=== PATIENT | female | born 1960 | race Caucasian/White ===

== ENCOUNTER → 2016-10-30 | Outpatient (CLI) | payer OTHER ==
--- NOTE | 2016-10-30 17:17 | BD ---
EXAMINATION TYPE: MG DEXA axial skeleton. DATE OF EXAM: 10/30/2016 11:52 AM COMPARISON: NONE CLINICAL HISTORY: 56-year-old female postmenopausal screening Height: 5 FT 8 IN Weight: 182 FRAX RISK QUESTIONS: Alcohol (3 or more units per day): NO Family History (Parent hip fracture): NO Glucocorticoids (More than 3mos): NO (Ex: prednisone, prednisolone, methylprednisolone, dexamethasone, and hydrocortisone). History of Fracture in Adulthood: NO Secondary Osteoporosis: 1. Type 1 Diabetes: NO 2. Hyperthyroidism: NO 3. Menopause before 45: YES 4. Malnutrition: NO 5. Chronic liver disease: NO Rheumatoid Arthritis: NO Current Tobacco Use: NO RISK FACTORS HISTORY OF: Family History of Osteoporosis: YES Active: NO Postmenopausal woman: AGE 43 MEDICATIONS: Additional Medications: ASPIRIN Additional History: HISTORY OF STROKE EXAM MEASUREMENTS: Bone mineral densitometry was performed using the [employer] System. Bone mineral density as measured about the Lumbar spine is: ----- L1-L4(G/cm2): 1.172 T Score Values are as follows: ----- L2: -0.3 ----- L3: -0.1 ----- L4: 0.1 ----- L1-L4: -0.1 Bone mineral density has: Decreased -4.5 % since study of: 2010 Bone mineral density about the R hip (g/cm2): 0.845 Bone mineral density about the L hip (g/cm2): 0.968 T Score values are as follows: -----R Neck: -1.4 -----L Neck: -0.5 -----R Total: -1.8 -----L Total: -1.2 Bone mineral density has: Decreased -9.0% since study of: 2010 IMPRESSION: Osteopenia as indicated by T score values in both hips. There is slightly increased risk of fracture and the patient may be considered for treatment. Re-Screen 2-5 years. NOTE: T-SCORE=SD OF THE YOUNG ADULT MEAN.
--- NOTE | 2016-10-31 14:26 | MM ---
Reason for exam: screening (asymptomatic). Last mammogram was performed 2 years and 1 month ago. History: Patient is postmenopausal. Family history of breast cancer in cousin at age 53. Cancelled Left US Needle Biopsy of the left breast, September 13, 2005. Took hormonal contraceptives for 8 years beginning at age 15. Physical Findings: A clinical breast exam by your physician is recommended on an annual basis and results should be correlated with mammographic findings. MG 3D Screening Mammo W/Cad Bilateral CC and MLO view(s) were taken. Prior study comparison: October 11, 2014, bilateral MG screening mammo w CAD. December 10, 2010, bilateral digital screening mammo w/CAD. There are scattered fibroglandular densities. No significant changes when compared with prior studies. ASSESSMENT: Negative, BI-RAD 1 RECOMMENDATION: Routine screening mammogram of both breasts in 1 year.
== END | disposition home or self-care (01) ==
LOC: RADMAMWWP 11:21
PROVIDERS: ATTEND Family Medicine
DX: Z12.31 Encounter for screening mammogram for malignant neoplasm of breast (principal); M85.851 Other specified disorders of bone density and structure, right thigh; M85.852 Other specified disorders of bone density and structure, left thigh; Z78.0 Asymptomatic menopausal state
CPT/HCPCS: 77080; 77063; G0202

== ENCOUNTER → 2016-11-27 | Outpatient (CLI) | payer OTHER ==
--- NOTE | 2016-11-27 14:50 | CTL ---
EXAMINATION TYPE: CT Low Dose Lung DATE OF EXAM ORDERED: 11/27/2016 HISTORY: . Lung cancer screening CT DLP: 81.[address] CTDI: 2.4 mGy Automated exposure control for dose reduction was used. SCREENING VISIT: Initial COMPARISON: None TECHNIQUE: Low dose computed tomography scan was performed through the chest at 1 mm thick sections a nd reconstructed images in the coronal plane at [address] DIAGNOSTIC QUALITY: Satisfactory FINDINGS: LUNG NODULES: None. LUNGS: COPD: Severity: Mild. Bronchial thickening is present suggestive for mild chronic bronchitis. Fibrosis: Severity: None Lymph nodes: No enlarged lymph nodes Other findings: None RIGHT PLEURAL SPACE: Effusion: None Calcification: None Thickening: None Pneumothorax: None LEFT PLEURAL SPACE: Effusion: None Calcification: None Thickening: None Pneumothorax: None HEART: Heart Size: Normal Coronary calcification: None Pericardial effusion: None OTHER FINDINGS: Upper abdomen: Unremarkable Bony thorax: Normal Supraclavicular region: Normal Other: The ascending thoracic aorta at the level the main pulmonary artery is 3.6 cm. The main pulmon jacobo artery the bifurcation is 2.6 cm IMPRESSION: Mild chronic bronchitis may be present. FOLLOW UP CT CHEST RECOMMENDATION: Screening per protocol CT LUNG RAD: Lung-Rad 1 Negative
== END | disposition home or self-care (01) ==
LOC: RADCTMAIN 14:15
PROVIDERS: ATTEND Family Medicine
DX: Z12.2 Encounter for screening for malignant neoplasm of respiratory organs (principal); J42 Unspecified chronic bronchitis; Z87.891 Personal history of nicotine dependence

== ENCOUNTER 2018-08-10 09:19 | Day surgery (SDC) | payer BC, OTHER ==
[2018-08-06 14:27] VITALS: BMI 27.3
[~2018-08-10 09:19] MED LIST: LIDOCAINE 1% 20 ML VIAL (10MG/ML) FOR IV START INTRADERMA PRN
[2018-08-10 09:45] VITALS: RESP 16; TEMP 97.9
[2018-08-10] MEDS: LACTATED RINGERS 1,000 ML IV SCH ×2 (09:51→10:08)
[2018-08-10] MEDS ORDERED: PROPOFOL 10 MG/ML 20 ML VIAL IV ONE (10:13)
--- NOTE | 2018-08-10 10:41 | P.PCN ---
Date of Procedure: 08/10/18 Procedure(s) Performed: Procedure: Total colonoscopy. Preoperative diagnosis: Screening for neoplasia, patient has family history of colon cancer and history of polyps. Postoperative diagnosis: Mild sigmoid diverticulosis with no evidence of acute diverticulitis, strictures, polyps or cancer. Preparation: HalfLytely prep. Sedation: Was provided by anesthesia. Brief clinical history: The patient is a 57-year-old female who is scheduled for this evaluation for screening for neoplasia age being her risk factor in addition to family history of colon cancer in her father and personal history of polyps. This would be her fourth evaluation. Her last exam was in 2013. The patient has no abdominal complaints, bleeding or anemia. She had an appendectomy 2 or 3 years ago and, apparently, she was told that she had a spot on the ileocecal valve area shown on CT. She is concerned, because her father had his cancer in that area. Procedure: With the patient on her left lateral decubitus position and after informed consent and adequate sedation, the perianal area was inspected and it did not show any fissures or fistulas. There were no masses felt on digital rectal examination. The Olympus CFH 190L video colonoscope was then inserted in the rectum in the usual fashion and advanced to the cecum. I intubated the ileocecal valve and examined the terminal ileum. Terminal ileum and colon appeared healthy with no edema, erythema, friability, ulceration, exudation or spontaneous bleeding. No polyps or tumors were seen. There was occasional diverticular orifices seen in the distal sigmoid but I saw no evidence of acute diverticulitis or strictures. I retroflexed the endoscope in the rectum before the endoscope was withdrawn. The patient tolerated the procedure well. Plan: The patient was reassured. Discussed dietary measures. She will follow- up with you as planned and I recommended repeat exam in 5 years.
[2018-08-10 10:54] VITALS: BP 100/67; PULSE 61
== END 2018-08-10 11:24 | disposition home or self-care (01) ==
LOC: ORWHC2ENDO 09:19
DX: Z12.11 Encounter for screening for malignant neoplasm of colon (principal); K57.30 Diverticulosis of large intestine without perforation or abscess without bleeding; I69.951 Hemiplegia and hemiparesis following unspecified cerebrovascular disease affecting right dominant side; E78.5 Hyperlipidemia, unspecified; D68.2 Hereditary deficiency of other clotting factors; Z86.010 Personal history of colon polyps; Z87.891 Personal history of nicotine dependence; Z80.0 Family history of malignant neoplasm of digestive organs; Z79.82 Long term (current) use of aspirin
CPT/HCPCS: J2704; G0105

== ENCOUNTER → 2018-11-02 | Outpatient (CLI) | payer BC ==
--- NOTE | 2018-11-02 13:14 | BD ---
EXAMINATION TYPE: Axial Bone Density DATE OF EXAM: 11/02/2018 COMPARISON: 10.30.2016 CLINICAL HISTORY: 58 YR OLD FEMALE.....ICD-10 CODE: Z78.0 POST MENOPAUSAL Height: 67.4 Weight: 177 FRAX RISK QUESTIONS: Secondary Osteoporosis: YES 3. Menopause before 45: YES, AT 43 YRS OLD Current Tobacco Use: QUIT ABOUT 10 YRS AGO RISK FACTORS HISTORY OF: Family History of Osteoporosis: YES, MOTHER...NO FX OF HIP Postmenopausal woman: YES HYST AT AGE 43 YRS Take estrogen and/or progesterone medications: ONLY BCPs IN PAST FOR ABOUT 8 YRS MEDICATIONS: Additional Medications: ASPIRIN 25 MG DAILY Additional History: NOTHING TO NOTE HERE EXAM MEASUREMENTS: Bone mineral densitometry was performed using the [employer] System. Bone mineral density as measured about the Lumbar spine is: ----- L1-L4(G/cm2): 1.168 T Score Values are as follows: ----- L1: -0.1 ----- L2: -0.5 ----- L3: -0.1 ----- L4: 0.1 ----- L1-L4: -0.1 Bone mineral density has: Decreased -0.7% since study of: 10.30.2016 Bone mineral density about the R hip (g/cm2): 0.778 Bone mineral density about the L hip (g/cm2): 0.854 T Score values are as follows: -----R Neck: -1.4 -----L Neck: -0.5 -----R Total: -1.8 -----L Total: -1.2 Bone mineral density has: Decreased -0.6% since study of: 10.30.2016 FRAX%s: THERE IS A 7.4% CHANCE FOR A MAJOR OSTEOPOROTIC FX AND A 0.5% FOR HIP.....PROBABILITY OF F X IN 10 YRS TIME IMPRESSION: Osteopenia bilateral hips. NOTE: T-SCORE=SD OF THE YOUNG ADULT MEAN.
--- NOTE | 2018-11-03 13:25 | MM ---
Reason for exam: screening (asymptomatic). Last mammogram was performed 2 years ago. History: Patient is postmenopausal. Family history of breast cancer in cousin at age 53. Cancelled Left US Needle Biopsy of the left breast, September 13, 2005. Took hormonal contraceptives for 8 years beginning at age 15. Physical Findings: A clinical breast exam by your physician is recommended on an annual basis and results should be correlated with mammographic findings. MG 3D Screening Mammo W/Cad Bilateral CC and MLO view(s) were taken. Prior study comparison: October 30, 2016, bilateral MG 3d screening mammo w/cad. October 11, 2014, bilateral MG screening mammo w CAD. There is chronic nodularity bilaterally. No significant changes when compared with prior studies. ASSESSMENT: Benign, BI-RAD 2 RECOMMENDATION: Routine screening mammogram of both breasts in 1 year.
== END | disposition home or self-care (01) ==
LOC: RADMAMWWP 08:42
PROVIDERS: ATTEND Family Medicine
DX: Z12.31 Encounter for screening mammogram for malignant neoplasm of breast (principal); M85.851 Other specified disorders of bone density and structure, right thigh; M85.852 Other specified disorders of bone density and structure, left thigh; Z78.0 Asymptomatic menopausal state
CPT/HCPCS: 77063; 77067; 77080

== ENCOUNTER 2018-11-26 10:25 | Day surgery (SDC) | payer BC ==
[2018-11-20 11:44] VITALS: BMI 27.3
[~2018-11-26 10:25] MED LIST changes: -LIDOCAINE 1% 20 ML VIAL (10MG/ML) FOR IV START INTRADERMA PRN; +SODIUM CHLORIDE 0.9% 1,000 ML IV SCH
[2018-11-26 10:56] VITALS: TEMP 97.5
[2018-11-26 13:59] VITALS: BP 117/70; PULSE 57; RESP 18
--- NOTE | 2018-11-26 15:47 | P.PCN ---
Preoperative Diagnosis: Diagnosis Recurrent dizzy spells/presyncope Twelve-lead ECG Sinus rhythm normal MA narrow QRS normal QT interval no epsilon waves no delta waves and normal ST segments Tilt table test per protocol Baseline blood pressure 106/59 mmHg Baseline heart rate 53 beats a minute patient was tilted upright at an angle of 70 per protocol Normal heart rate and blood pressure response to upright tilting No symptoms noted Impression normal twelve-lead ECG Normal heart rate and blood pressure response to upright tilting No evidence for neurocardiogenic syncope
== END 2018-11-26 13:35 | disposition home or self-care (01) ==
LOC: CATHEP 10:25
PROVIDERS: ATTEND Internal Medicine Clinical Cardiac Electrophysiology
DX: R55 Syncope and collapse (principal); R42 Dizziness and giddiness
CPT/HCPCS: 93005; 93660

== ENCOUNTER → 2021-01-04 | Outpatient (CLI) | payer BC ==
--- NOTE | 2021-01-04 12:40 | CT ---
EXAMINATION TYPE: CT angio head DATE OF EXAM: 01/04/2021 COMPARISON: CT without contrast 04/27/2020 HISTORY: 60-year-old female R4 2, Z8 6.73, Dizziness and Giddiness, personal history of TIA TECHNIQUE: Contiguous axial scanning of the head performed without and with IV Contrast, patient inje cted with 100 ml mL of Isovue 370. Coronal and sagittal reconstructions performed. 3-D reconstruction s generated on a dedicated workstation. CT DLP: 2477 mGycm Automated exposure control for dose reduction was used. FINDINGS: Brain: Large area of encephalomalacia left yu radiata left basal ganglia. Asymmetric volume loss with sl ight enlargement of the body of the left lateral ventricle. Associated hypodensity extending into the left centrum semiovale may be slightly increased. No evidence for acute intracranial hemorrhage, acute ischemic change, mass, mass effect, midline shif t, or extra-axial fluid collection. No hydrocephalus. No effacement of cerebral sulci or basal symmet annette distance. Freitas-white matter differentiation is maintained. Paranasal sinuses and mastoid air cells well pneumatized. Orbits and globes are intact. CTA: The V4 segment left vertebral artery after the PICA takeoff becomes slightly hypoplastic. This is lik salo congenital variation. Otherwise, the vertebral basilar arteries as well as the bilateral internal carotid arteries are navas nt without any significant stenosis. Posterior and anterior circulations are patent. No aneurysmal change is seen. IMPRESSION: 1. 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 SLIGHT ASYMMETRIC VOLUME LOSS IS UNCHANGED. NO ACUTE INT RACRANIAL ABNORMALITY SEEN. 2. CTA [place]: NO LARGE VESSEL INTRACRANIAL ARTERIAL OCCLUSION, SIGNIFICANT STENOSIS, OR AN EURYSMAL CHANGE IS SEEN.
== END | disposition home or self-care (01) ==
LOC: RADCTMAIN 09:18
PROVIDERS: ATTEND Family Medicine
DX: G93.89 Other specified disorders of brain (principal)
CPT/HCPCS: 70496; Q9967

== ENCOUNTER → 2023-04-22 | Outpatient (CLI) | payer BC ==
--- NOTE | 2023-04-23 09:04 | MM ---
Reason for Exam: Screening (asymptomatic). Last mammogram was performed 4 year(s) and 5 month(s) ago. Patient History: Menarche at age 8. First Full-Term at age 17. Hysterectomy at age 43. Postmenopausal. Hormonal Contraceptives for 8 years from age 15 until age 23. 09/13/2005, Cancelled Left US Needle Biopsy on the left side. Maternal cousin had breast cancer, age 53. Risk Values: Maddy 5 year model risk: 1.2%. NCI Lifetime model risk: 5.3%. Prior Study Comparison: 10/11/2014 Bilateral Screening Mammogram, [facility]. 10/30/2016 Bilateral Screening Mammogram, [facility]. 11/02/2018 Bilateral Screening Mammogram, [facility]. Tissue Density: There are scattered fibroglandular densities. Findings: Analyzed By CAD. There is no suspicious group of microcalcifications or new suspicious mass in either breast. Overall Assessment: Negative, BI-RAD 1 Management: Screening Mammogram of both breasts in 1 year. . Patient should continue monthly self-breast exams. A clinical breast exam by your physician is recommended on an annual basis. This exam should not preclude additional follow-up of suspicious palpable abnormalities. Note on Maddy scores and lifetime risk: 1. A Maddy score greater than 3% is considered moderate risk. If this is the case, consider specialist referral to assess eligibility for a risk reducing agent. 2. If overall lifetime risk for the development of breast cancer is 20% or higher, the patient may qualify for future screening with alternating mammogram and breast MRI. Electronically signed and approved by: Jeff Colon M.D. Radiologis
== END | disposition home or self-care (01) ==
LOC: RADMAMWWP 14:49
PROVIDERS: ATTEND Family Medicine
DX: Z12.31 Encounter for screening mammogram for malignant neoplasm of breast (principal); Z78.0 Asymptomatic menopausal state; Z80.3 Family history of malignant neoplasm of breast
CPT/HCPCS: 77063; 77067

== ENCOUNTER → 2023-04-24 | Outpatient (CLI) | payer BC ==
--- NOTE | 2023-04-24 13:50 | BD ---
EXAMINATION TYPE: Axial Bone Density DATE OF EXAM: 04/24/2023 CLINICAL HISTORY: 62 years old Female. ICD-10 CODE: Z78.0 ASYMPTOMATIC MENOPAUSAL Height: 66.5in Weight: 187lb FRAX RISK QUESTIONS: Secondary Osteoporosis: 3. Menopause before 45: yes RISK FACTORS HISTORY OF: Family History of Osteoporosis: yes Active: yes Postmenopausal woman: yes Take estrogen and/or progesterone medications: none current How long: about 8 years Lost more than 2 inches in height since high school: yes Poor Health: fair MEDICATIONS: Additional Medications: none Additional History: none EXAM MEASUREMENTS: Bone mineral densitometry was performed using the [employer] System. Bone mineral density as measured about the Lumbar spine is: ----- L1-L4(G/cm2): 1.135 T Score Values are as follows: ----- L1: -0.8 ----- L2: -0.6 ----- L3: -0.3 ----- L4: -0.2 ----- L1-L4: -0.4 Z Score Values are as follows: ----- L1: 0.1 ----- L2: 0.2 ----- L3: 0.5 ----- L4: 0.6 ----- L1-L4: 0.4 Bone mineral density has: Decreased -2.8% since study of: 11-02-2018 Bone mineral density about the R hip (g/cm2): 0.777 Bone mineral density about the L hip (g/cm2): 0.813 T Score values are as follows: -----R Neck: -1.4 -----L Neck: -1.1 -----R Total: -1.8 -----L Total: -1.5 Z Score values are as follows: -----R Neck: -0.4 -----L Neck: -0.1 -----R Total: -1.2 -----L Total: -0.9 Bone mineral density has: Decreased -2.6% since study of: 11-02-2018 FRAX%s: The graph provided illustrates a 8.1% chance for a major osteoporotic fx and a 0.7% chance fo r the hips probability for fx in 10 years time. IMPRESSION: Osteopenia (T Score between -2.5 and -1). There is slightly increased risk of fracture and the patient may be considered for treatment. Re-Screen 2-5 years. NOTE: T-SCORE=SD OF THE YOUNG ADULT MEAN.
== END | disposition home or self-care (01) ==
LOC: RADBDWWP 12:15
PROVIDERS: ATTEND Family Medicine
DX: M85.89 Other specified disorders of bone density and structure, multiple sites (principal); Z78.0 Asymptomatic menopausal state
CPT/HCPCS: 77080